=== PATIENT | male | born 2000 | race Caucasian/White ===

== ENCOUNTER 2020-12-21 11:04 | Outpatient (CLI) | payer BC ==
--- NOTE | 2020-12-21 13:47 | Magnetic Resonance Report ---
MRI LEFT HIP WITHOUT CONTRAST INDICATION / CLINICAL INFORMATION: PAIN IN LEFT HIP. TECHNIQUE: Multiplanar, multisequence MR images were obtained. No contrast used. COMPARISON: None available. FINDINGS: ACETABULAR LABRUM: No significant abnormality. ARTICULAR CARTILAGE: No significant abnormality. LIGAMENTUM TERES: No significant abnormality. JOINT SPACE AND CAPSULE: No significant abnormality. GLUTEAL MUSCLES/TENDONS: No significant abnormality. ILIOPSOAS MUSCLES/TENDON: No significant abnormality. PROXIMAL HAMSTRING TENDONS: No significant abnormality. GROIN MUSCLES/TENDONS: No significant abnormality. SOFT TISSUES: No significant abnormality. BONES: No significant bone marrow edema. No fracture. No osseous lesion. SACROILIAC JOINT(S): No significant abnormality. LOWER LUMBAR SPINE: No significant abnormality of visualized lower lumbar spine. SOFT TISSUE WITHIN PELVIS: No acute findings. ADDITIONAL FINDINGS: None. IMPRESSION: 1. No significant abnormality. Report dictated by: Ney Wilson MD Report dictated on: 12/21/2020 12:06 PM I have reviewed the images, agree with this report, and edited this report as needed. Signer Name: Elli Patino MD Signed: 12/21/2020 1:43 PM Workstation Name: [id number]
== END 2020-12-21 11:05 | disposition home or self-care (01) ==
LOC: MRI 11:04
PROVIDERS: ATTEND Orthopaedic Surgery
DX: M25.552 Pain in left hip (principal)
CPT/HCPCS: 73721